=== PATIENT | male | born 1955 | race American Indian/Alaskan Native ===

== ENCOUNTER 2019-03-31 18:38 | Emergency (ER) | payer OTHER ==
[2019-03-31 18:56] VITALS: BP 146/77
--- NOTE | 2019-03-31 18:58 | Emergency Department Report ---
Blank Doc - Documentation Documentation: 63 y o male presents to Ed cc of swelling and pain to right leg friday morning after spening friday at a cook out [employer] [facility]
[2019-03-31 23:07] LABS: Basophils % (Auto) 0.6 % (0.0-1.8); Eosinophils % (Auto) 0.8 % (0.0-4.3); Hematocrit 37.1 % (35.5-45.6); Hemoglobin 12.1 gm/dl (11.8-15.2); Lymphocytes # (Auto) 1.7 K/mm3 (1.2-5.4); Lymphocytes % (Auto) 31.3 % (13.4-35.0); Mean Corpuscular HGB Conc 33 % (32-34); Mean Corpuscular Volume 86 fl (84-94); Monocytes # (Auto) 0.7 K/mm3 (0.0-0.8); Platelet Count 239 K/mm3 (140-440); Red Blood Count 4.34 M/mm3 (3.65-5.03); Red Cell Distribution Width 14.7 % (13.2-15.2)
[2019-03-31 23:13] LABS: Alanine Aminotransferase 21 units/L (7-56); Albumin 3.9 g/dL (3.9-5); BUN/Creatinine Ratio 9; Blood Urea Nitrogen 9 mg/dL (9-20); Hemolysis Index 2
[2019-03-31] MEDS ORDERED: LASIX IV ONE (23:20)
--- NOTE | 2019-03-31 23:48 | XRay Report ---
PROCEDURE: XR CHEST ROUTINE 2V TECHNIQUE: PA and lateral chest radiographs were obtained. HISTORY: anika leg swelling COMPARISONS: No prior studies submitted for comparison FINDINGS: Heart: Normal. Mediastinum/Vessels: Normal. Lungs/Pleural space: There is bilateral pulmonary interstitial prominence which may be acute or chron ic finding. Continued follow-up recommended Bony thorax: No acute osseous abnormality. IMPRESSION: Pulmonary interstitial prominence which may be an acute or chronic finding. Continued fol low-up recommended early edema is a consideration This document is electronically signed by Mikael Narayanan MD., March 31 2019 11:46:40 PM ET
--- NOTE | 2019-04-01 00:11 | Emergency Department Report ---
ED General Adult HPI - General Chief complaint: Extremity Problem,Nontraumatic Stated complaint: BOTH FEET SWOLLEN Time Seen by Provider: 03/31/19 18:55 Source: patient Mode of arrival: Ambulatory Limitations: No Limitations - History of Present Illness Initial comments: This is a 63-year-old male nontoxic, well nourished in appearance, no acute signs of distress presents to the ED with c/o of bilateral leg swelling x2 days. Patient stated symptoms started after a barbecue and has been standing on his feet. Patient denies any pain. Patient denies any chest pain. Patient denies any upper respiratory symptoms. Patient denies any shortness of breath, hemoptysis, fever, chills, nausea, vomiting, headache, stiff neck, numbness, tingling, abdominal pain. Patient denies any recent travels or long car rides. Patient denies any recent surgeries or any sick contacts. Patient denies any drug allergies or significant past medical history. MD Complaint: bilateral leg swelling -: days(s) (2) Location: lower extremity Severity scale (0 -10): 0 Improves with: none Worsens with: none Associated Symptoms: denies other symptoms. denies: confusion, chest pain, cough, diaphoresis, fever/chills, headaches, loss of appetite, malaise, nausea/vomiting, rash, seizure, shortness of breath, syncope, weakness Treatments Prior to Arrival: none - Related Data Previous Rx's Medication Instructions Recorded Last Taken Type Furosemide [Lasix] 20 mg PO QDAY #7 tablet 04/01/19 Unknown Rx Allergies Allergy/AdvReac Type Severity Reaction Status Date / Time No Known Allergies Allergy Unverified 03/31/19 18:44 ED Review of Systems ROS: Stated complaint: BOTH FEET SWOLLEN Other details as noted in HPI Constitutional: denies: chills, fever Eyes: denies: eye pain, eye discharge, vision change ENT: denies: ear pain, throat pain Respiratory: denies: cough, shortness of breath, wheezing Cardiovascular: denies: chest pain, palpitations Endocrine: no symptoms reported Gastrointestinal: denies: abdominal pain, nausea, diarrhea Genitourinary: denies: urgency, dysuria Musculoskeletal: denies: back pain, joint swelling, arthralgia Skin: denies: rash, lesions Neurological: denies: headache, weakness, paresthesias Psychiatric: denies: anxiety, depression Hematological/Lymphatic: denies: easy bleeding, easy bruising ED Past Medical Hx - Past Medical History Previous Medical History?: No - Surgical History Past Surgical History?: No - Social History Smoking Status: Current Some Day Smoker Substance Use Type: None - Medications Home Medications: Home Medications Medication Instructions Recorded Confirmed Last Taken Type Furosemide [Lasix] 20 mg PO QDAY #7 tablet 04/01/19 Unknown Rx ED Physical Exam - General Limitations: No Limitations General appearance: alert, in no apparent distress - Head Head exam: Present: atraumatic, normocephalic - Eye Eye exam: Present: normal appearance - Neck Neck exam: Present: normal inspection, full ROM. Absent: tenderness, mening ismus, lymphadenopathy - Respiratory Respiratory exam: Present: normal lung sounds bilaterally. Absent: respiratory distress, wheezes, rales, rhonchi, stridor, chest wall tenderness, accessory muscle use, decreased breath sounds, prolonged expiratory - Cardiovascular Cardiovascular Exam: Present: regular rate, normal rhythm, normal heart sounds. Absent: bradycardia, tachycardia, irregular rhythm, systolic murmur, diastolic murmur, rubs, gallop - GI/Abdominal GI/Abdominal exam: Present: soft, normal bowel sounds. Absent: distended, tenderness, guarding, rebound, rigid, diminished bowel sounds - Extremities Exam Extremities exam: Present: normal inspection, full ROM, normal capillary refill, pedal edema. Absent: tenderness, joint swelling, calf tenderness - Expanded Lower Extremity Exam Left Hip exam: Present: normal inspection (bilateral exam), full ROM (bilateral exam). Absent: tenderness Upper Leg exam: Present: normal inspection (bilateral exam), full ROM (bilateral exam). Absent: tenderness Knee exam: Present: normal inspection (bilateral exam), full ROM (bilateral exam). Absent: tenderness Lower Leg exam: Present: normal inspection (bilateral exam), full ROM (bilateral exam), swelling (2+ pitting edema bilateral). Absent: tenderness, abrasion, laceration, ecchymosis, deformity, crepidus, dislocation, erythema, palpable cord, Juvenal's sign Ankle exam: Present: normal inspection (bilateral exam), full ROM (bilateral exam), swelling (2+ pitting edema bilateral). Absent: tenderness, abrasion, laceration, ecchymosis, deformity, crepidus, dislocation, erythema, anterior draw sign Foot/Toe exam: Present: normal inspection (bilateral exam), full ROM (bilateral exam), swelling (2+ pitting edema bilateral). Absent: tenderness, abrasion, laceration, ecchymosis, deformity, crepidus, dislocation, amputation, puncture wound, foreign body, calcaneal tenderness, tenderness at base of 5th metatarsal, nail avulsion, subungual hematoma Neuro vascular tendon exam: Present: no vascular compromise Gait: Positive: observed and normal - Back Exam Back exam: Present: normal inspection, full ROM - Neurological Exam Neurological exam: Present: alert, oriented X3, normal gait - Psychiatric Psychiatric exam: Present: normal affect, normal mood - Skin Skin exam: Present: warm, dry, intact, normal color. Absent: rash ED Course Vital Signs 03/31/19 18:54 Temperature 98.5 F Pulse Rate 64 Respiratory 16 Rate Blood Pressure 146/77 O2 Sat by Pulse 94 Oximetry - Reevaluation(s) Reevaluation #1: 04/01/19 00:10 Patient is speaking in full sentences with no signs of distress noted. ED Medical Decision Making - Lab Data Result diagrams: 03/31/19 22:23 03/31/19 22:23 - Medical Decision Making This is a 63-year-old male that presents with bilateral leg swelling. Patient is stable and was examined by me. AMANDA and HEART score 0 pints. Wells criteria for DVT/SVT/PE 0 points. Negative d-dimmer. EKG normal sinus rhythm with no significant changes in ST. Chest xray dictated by the radiologist. PAtient is notified of the Xray report with no questions noted. Labs within normal limits. Patient received Lasix in the ED. 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 At time of discharge, the patient does not seem toxic or ill in appearance. No acute signs of distress noted. Patient agrees to discharge treatment plan of care. No further questions noted by the patient. Critical care attestation.: If time is entered above; I have spent that time in minutes in the direct care of this critically ill patient, excluding procedure time. ED Disposition Clinical Impression: Localized swelling of both lower legs Disposition: DC-01 TO HOME OR SELFCARE Is pt being admited?: No Does the pt Need Aspirin: No Condition: Stable Instructions: Furosemide (By mouth) Additional Instructions: Follow-up with a primary care/propeller layout worker doctor in 2-3 days or if symptoms worsen and continue return to emergency room as soon as possible. Prescriptions: Furosemide [Lasix] 20 mg PO QDAY #7 tablet [facility] [place] [Primary Care Provider] - 3-5 Days PRIMARY CAREMD [Referring] - 3-5 Days MICHAELFLORES LOCO MD [Staff Physician] - 3-5 Days [facility] [Outside] - 3-5 Days [facility] [Outside] - 3-5 Days Forms: Work/School Release Form(ED)
[2019-04-01 00:45] LABS: Bilirubin,Urine NEG (Negative); Blood,Urine NEG (Negative); Color,Urine Straw (Yellow); Mucus,Urine FEW /HPF; Protein,Urine <15 mg/dL mg/dL (Negative); Urobilinogen,Urine < 2.0 mg/dL (<2.0); WBC,Urine < 1.0 /HPF (0.0-6.0)
== END 2019-04-01 01:20 | disposition home or self-care (01) ==
LOC: ED 18:38
DX: R22.43 Localized swelling, mass and lump, lower limb, bilateral (principal); F17.200 Nicotine dependence, unspecified, uncomplicated
CPT/HCPCS: 36415; 71046; 80053; 81001; 83880; 85025; 93005; 93010; J1940; 96374